=== PATIENT | male | born 1975 | race Caucasian/White ===

== ENCOUNTER → 2023-04-08 12:40 | Outpatient (BNVA) | payer MEDICARE, MEDICAID, SELFPAY | PROVIDERS: PCP Family Medicine; Visit Provider Podiatrist Foot & Ankle Surgery | DX: M20.31 Hallux varus (acquired), right foot (principal); M20.32 Hallux varus (acquired), left foot; M20.41 Other hammer toe(s) (acquired), right foot; M20.42 Other hammer toe(s) (acquired), left foot; E11.42 Type 2 diabetes mellitus with diabetic polyneuropathy; Z79.84 Long term (current) use of oral hypoglycemic drugs | CPT/HCPCS: 99203 ==

== ENCOUNTER → 2024-04-07 11:44 | Outpatient (BNVA) | payer MEDICARE, MEDICAID, SELFPAY | PROVIDERS: PCP Family Medicine; Visit Provider Podiatrist Foot & Ankle Surgery | DX: E11.8 Type 2 diabetes mellitus with unspecified complications (principal); M20.31 Hallux varus (acquired), right foot; M20.32 Hallux varus (acquired), left foot; M20.41 Other hammer toe(s) (acquired), right foot; M20.42 Other hammer toe(s) (acquired), left foot; E11.42 Type 2 diabetes mellitus with diabetic polyneuropathy; Z79.84 Long term (current) use of oral hypoglycemic drugs | CPT/HCPCS: 99213 ==

== ENCOUNTER → 2024-04-08 08:51 | Outpatient (BNVA) | payer MEDICARE, MEDICAID, SELFPAY | PROVIDERS: PCP Family Medicine; Visit Provider Internal Medicine | DX: E11.42 Type 2 diabetes mellitus with diabetic polyneuropathy (principal); E21.3 Hyperparathyroidism, unspecified; E55.9 Vitamin D deficiency, unspecified; E07.9 Disorder of thyroid, unspecified; R53.83 Other fatigue; Z79.84 Long term (current) use of oral hypoglycemic drugs | CPT/HCPCS: 36415; 80053; 82306; 82310; 83970; 84439; 84443; 99204 ==

== ENCOUNTER 2024-06-19 09:38 | Outpatient (CLI) | payer MEDICARE, MEDICAID, SELFPAY ==
[2024-06-19 10:37] LABS: Alanine Aminotransferase 21 U/L (0-41); Albumin Level 3.8 g/dL (3.5-5.2); Alkaline Phosphatase 164 U/L (40-130); Anion Gap 13.6 (5-19); Aspartate Amino Transferase 15 U/L (0-40); Blood Urea Nitrogen 10 mg/dL (6-20); Calcium 10.8 mg/dL (8.5-10.5); Carbon Dioxide 28 mmol/L (22-29); Chloride 99 mmol/L (98-107); Globulin 3.7 g/dL (1.3-4.6); Glomerular Filtration Rate 178.2 mL/min (90-130); Glucose 193 mg/dL (65-115); Osmolality Calculated 286 mOsm/kg (285-295); Potassium 4.6 mmol/L (3.5-5.1); Sodium 136 mmol/L (136-145); Total Bilirubin 0.2 mg/dL (0.15-1.2); Total Protein 7.5 g/dL (6.6-8.7)
[2024-06-19 10:44] LABS: Parathyroid Hormone 77.5 pg/mL (15-65)
[2024-06-19 10:53] LABS: 25 Hydroxy Vitamin D 17 ng/mL (30-100)
== END 2024-06-19 09:39 | disposition home or self-care (01) ==
LOC: LAB 09:40
PROVIDERS: PCP Family Medicine; Visit Provider Internal Medicine
DX: E21.3 Hyperparathyroidism, unspecified (principal); E55.9 Vitamin D deficiency, unspecified
CPT/HCPCS: 36415; 80053; 82306; 82310; 83970

== ENCOUNTER → 2024-06-22 07:53 | Outpatient (BNVA) | payer MEDICARE, MEDICAID, SELFPAY | PROVIDERS: PCP Family Medicine; Visit Provider Internal Medicine | DX: E21.3 Hyperparathyroidism, unspecified (principal); E55.9 Vitamin D deficiency, unspecified; R53.83 Other fatigue | CPT/HCPCS: 99214 ==

== ENCOUNTER → 2024-08-24 08:09 | Outpatient (BNVA) | payer MEDICARE, MEDICAID, SELFPAY | PROVIDERS: PCP Family Medicine; Visit Provider Internal Medicine | DX: E83.52 Hypercalcemia (principal); R53.83 Other fatigue | CPT/HCPCS: 82306; 82310; 83970; 99214 ==

== ENCOUNTER 2024-08-26 07:47 | Outpatient (CLI) | payer MEDICARE, MEDICAID, SELFPAY ==
--- NOTE | 2024-08-26 08:00 | NM_ITS ---
WS: [id number] EXAMINATION: NM parathyroid 85205 ORDER DATE: 08/26/2024 8:00 AM HISTORY: hyperparathyroidism TECHNIQUE: Parathyroid scintigraphy with 21.0 mCi of technetium 99 M sestamibi administered. AP and oblique views obtained with and without chin and suprasternal notch markers. Initial and 2 hour delayed imaging acquired. FINDINGS: Normal symmetric thyroid uptake on the initial imaging. Normal thyroid washout. No significant retained activity to indicate parathyroid adenoma. Normal salivary gland uptake. NM/NM parathyroid [id number] IMPRESSION: No evidence of parathyroid adenoma.
== END 2024-08-26 07:48 | disposition home or self-care (01) ==
PROVIDERS: PCP Family Medicine; Visit Provider Internal Medicine
DX: E21.3 Hyperparathyroidism, unspecified (principal)
CPT/HCPCS: 78070; A9500

== ENCOUNTER 2024-10-21 09:58 | Outpatient (CLI) | payer OTHER, MEDICAID, SELFPAY ==
[2024-10-21 11:12] LABS: Calcium 10.9 mg/dL (8.5-10.5)
[2024-10-21 11:20] LABS: Parathyroid Hormone 71.8 pg/mL (15-65)
[2024-10-21 11:28] LABS: 25 Hydroxy Vitamin D 34 ng/mL (30-100)
== END 2024-10-21 09:59 | disposition home or self-care (01) ==
PROVIDERS: PCP Family Medicine; Visit Provider Internal Medicine
DX: E83.52 Hypercalcemia (principal)
CPT/HCPCS: 36415; 82306; 82310; 83970

== ENCOUNTER → 2024-10-26 08:39 | Outpatient (BNVA) | payer OTHER, MEDICAID, SELFPAY | PROVIDERS: PCP Family Medicine; Visit Provider Internal Medicine | DX: E83.52 Hypercalcemia (principal); R53.83 Other fatigue | CPT/HCPCS: 99214 ==

== ENCOUNTER 2024-12-23 10:15 | Outpatient (CLI) | payer OTHER, MEDICAID, SELFPAY ==
[2024-12-23 12:32] LABS: 25 Hydroxy Vitamin D 53 ng/mL (30-100)
[2024-12-23 12:51] LABS: Calcium 9.5 mg/dL (8.5-10.5); Parathyroid Hormone 28.9 pg/mL (15-65)
== END 2024-12-23 10:16 | disposition home or self-care (01) ==
LOC: LAB 10:18
PROVIDERS: PCP Family Medicine; Visit Provider Internal Medicine
DX: E83.52 Hypercalcemia (principal); R53.83 Other fatigue
CPT/HCPCS: 36415; 82306; 82310; 83970

== ENCOUNTER → 2024-12-28 09:13 | Outpatient (BNVA) | payer OTHER, MEDICAID, SELFPAY | PROVIDERS: PCP Family Medicine; Visit Provider Internal Medicine | DX: E21.3 Hyperparathyroidism, unspecified (principal); E55.9 Vitamin D deficiency, unspecified; R53.83 Other fatigue | CPT/HCPCS: 99214 ==

== ENCOUNTER → 2025-04-06 11:08 | Outpatient (BNVA) | payer OTHER, MEDICAID, SELFPAY | PROVIDERS: PCP Family Medicine; Visit Provider Podiatrist Foot & Ankle Surgery | DX: E11.8 Type 2 diabetes mellitus with unspecified complications (principal); M20.31 Hallux varus (acquired), right foot; M20.32 Hallux varus (acquired), left foot; M20.41 Other hammer toe(s) (acquired), right foot; M20.42 Other hammer toe(s) (acquired), left foot; E11.42 Type 2 diabetes mellitus with diabetic polyneuropathy; Z79.84 Long term (current) use of oral hypoglycemic drugs | CPT/HCPCS: 99213 ==